=== PATIENT | female | born 1965 | race Caucasian/White ===

== ENCOUNTER 2017-05-24 08:54 | Emergency (ER) | payer OTHER ==
[~2017-05-24] VITALS: Ht 165.1 cm; Wt 90.7 kg
[~2017-05-24 08:54] MED LIST: AMLODIPINE BESYL5 M1 PO; ASPIR LOW81 MG PO; CLINDAMYCIN HC300 MG PO; COLACE100 MG PO; LAC PO; LEVAQUIN500 MG PO; NORCO1 TA2 PO; ZOC20 PO
[2017-05-24 09:00] VITALS: BP 117/76; Ht 165.1 cm; Wt 90.7 kg
== END 2017-05-24 10:06 | disposition home or self-care (01) ==
LOC: ED 08:54
DX: M25.531 Pain in right wrist (principal); I10 Essential (primary) hypertension; E03.9 Hypothyroidism, unspecified; Z98.51 Tubal ligation status
CPT/HCPCS: A4570

== ENCOUNTER 2017-06-11 02:10 | Emergency (ER) | payer OTHER ==
[~2017-06-11] VITALS: Ht 160 cm; Wt 85.7 kg
[2017-06-11 02:16] VITALS: Ht 160 cm; Wt 85.7 kg
[2017-06-11 04:59] VITALS: BP 133/72
== END 2017-06-11 04:59 | disposition home or self-care (01) ==
LOC: ED 02:10
DX: M13.832 Other specified arthritis, left wrist (principal); I10 Essential (primary) hypertension; E03.9 Hypothyroidism, unspecified
CPT/HCPCS: J1885

== ENCOUNTER 2017-06-13 05:14 | Emergency (ER) | payer OTHER ==
[~2017-06-13] VITALS: Ht 165.1 cm; Wt 86.2 kg
[2017-06-13 05:22] VITALS: Ht 165.1 cm; Wt 86.2 kg
[2017-06-13 06:53] VITALS: BP 120/67
== END 2017-06-13 06:53 | disposition home or self-care (01) ==
LOC: ED 05:14
DX: L03.114 Cellulitis of left upper limb (principal); I10 Essential (primary) hypertension; E03.9 Hypothyroidism, unspecified; Z98.51 Tubal ligation status
CPT/HCPCS: J0690; Q0092

== ENCOUNTER 2017-07-12 19:23 | Emergency (ER) | payer OTHER | END 2017-07-12 20:19 | disposition left against medical advice (07) | LOC: ED 19:23 | DX: Z53.21 Procedure and treatment not carried out due to patient leaving prior to being seen by health care provider (principal) ==

== ENCOUNTER 2018-01-03 21:45 | Emergency (ER) | payer OTHER ==
[~2018-01-03] VITALS: Ht 165.1 cm; Wt 84.5 kg
[2018-01-03 21:52] VITALS: Ht 165.1 cm; Wt 84.5 kg
[2018-01-04 00:12] VITALS: BP 122/78
== END 2018-01-04 00:12 | disposition home or self-care (01) ==
LOC: ED 21:45
DX: M25.532 Pain in left wrist (principal); M79.642 Pain in left hand; I10 Essential (primary) hypertension; E03.9 Hypothyroidism, unspecified; Z98.51 Tubal ligation status
CPT/HCPCS: J2270; J7512; Q0162

== ENCOUNTER 2018-08-01 14:54 | Emergency (ER) | payer OTHER ==
[~2018-08-01] VITALS: Ht 162.6 cm; Wt 87.1 kg
[2018-08-01 14:56] VITALS: BP 159/99; Ht 162.6 cm; Wt 87.1 kg
== END 2018-08-01 17:14 | disposition left against medical advice (07) ==
LOC: ED 14:54
DX: Z53.21 Procedure and treatment not carried out due to patient leaving prior to being seen by health care provider (principal)

== ENCOUNTER 2018-08-02 06:36 | Emergency (ER) | payer OTHER ==
[~2018-08-02] VITALS: Ht 165.1 cm; Wt 87.5 kg
[2018-08-02 06:47] VITALS: BP 132/81; Ht 165.1 cm; Wt 87.5 kg
== END 2018-08-02 07:48 | disposition left against medical advice (07) ==
LOC: ED 06:36
DX: Z53.21 Procedure and treatment not carried out due to patient leaving prior to being seen by health care provider (principal)

== ENCOUNTER 2018-09-26 22:24 | Emergency (ER) | payer OTHER ==
[~2018-09-26] VITALS: Ht 165.1 cm; Wt 88.1 kg
[2018-09-26 22:52] VITALS: Ht 165.1 cm; Wt 88.1 kg
[2018-09-27 01:35] VITALS: BP 108/66
== END 2018-09-27 01:35 | disposition home or self-care (01) ==
LOC: ED 22:24
DX: L03.115 Cellulitis of right lower limb (principal); I10 Essential (primary) hypertension; E03.9 Hypothyroidism, unspecified; Z98.890 Other specified postprocedural states; Z98.51 Tubal ligation status
CPT/HCPCS: J2543

== ENCOUNTER 2018-10-05 | Inpatient (IN) | payer OTHER ==
[~2018-10-05] VITALS: Ht 162.6 cm; Wt 89.4 kg
[2018-10-05 00:15] VITALS: Ht 162.6 cm; Wt 89.4 kg
--- NOTE | 2018-10-05 01:26 | NUR ---
PT TO ED FOR EVAL OF L ANKLE CELLULITIS. PT WAS SEEN LAST WEEK AND DIAGNOSED WITH CELLULITIS. PT GIVEN RX FOR ANTIBIOTICS. PT HAD BEEN TAKING ANTIBIOTIC BUT HAS NOT SEEN IMPROVEMENT IN THE INFECTIONS. PT AWAKE AND ALERT. BREATHING EVEN UNALBORED. NO DISTRESS. MSE COMPLETED.
--- NOTE | 2018-10-05 01:50 | NUR ---
LAB AT BEDSIDE.
[2018-10-05 02:25] LABS: CALCIUM 8.6 mg/dL (8.5-10.1); CARBON DIOXIDE 23.8 mmol/L (21-32); CHLORIDE SERUM 107 mmol/L (98-107); CREATININE SERUM 0.9 mg/dL (0.6-1.0); GFR1 > 60 mL/min; GLUCOSE SERUM 84 mg/dL (74-106); POTASSIUM SERUM 3.5 mmol/L (3.5-5.1); SODIUM SERUM 143 mmol/L (136-145)
[2018-10-05 02:26] LABS: BASOPHIL % 0.4 % (0-2); RED CELL DISTRIBUTION WIDTH 13.4 % (11.5-14.5)
[2018-10-05 02:28] LABS: PLATELET COUNT 421 x10^3mcL (130-400)
--- NOTE | 2018-10-05 02:30 | NUR ---
PT RESTING ON GURNEY IN NAD, BREATHING EVEN AND UNLABORED. PT A&0X4, SPEAKING FULL CLEAR SENTENCES. WILL CONTINUE TO MONITOR.
[2018-10-05 02:43] LABS: ALBUMIN 3.3 g/dL (3.4-5.0); ALKALINE PHOSPHATASE 120 U/L (46-116); ALT/SGPT 48 U/L (14-59); AST/SGOT 21 U/L (15-37); BILIRUBIN TOTAL 0.28 mg/dL (0.20-1.00); TOTAL PROTEIN, SERUM 7.4 g/dL (6.4-8.2)
[2018-10-05 02:58] LABS: CHOLESTEROL/HDL RATIO 3.3; PHOSPHOROUS 3.7 mg/dL (2.5-4.9)
--- NOTE | 2018-10-05 03:20 | NUR ---
PT MEDICATED PER MD ORDERS. IV FLUIDS RUNNING AT ORDERED RATE. PT A&0X4, SPEAKING FULL CLEAR SENTENCES. BREATHING EVEN AND UNLABORED. WILL CONTINUE TO MONITOR.
--- NOTE | 2018-10-05 03:35 | NUR ---
REPORT CALLED TO SKYLER AGUILAR
--- NOTE | 2018-10-05 03:55 | NUR ---
PT TRANSFERED TO [facility] AT THIS TIME VIA WHEELCHAIR. PT A&0X4, SPEAKING FULL CLEAR SENTENCES. PT BREATHING EVEN AND UNLABORED. IV FLUIDS ENDORSED TO SKYLER AGUILAR. PT VERBALIZED UNDERSTANDING OF PLAN OF CARE. PT ACCOMPANIED BY THOMAS GROVER.
--- NOTE | 2018-10-05 03:59 | NUR ---
PATIENT ARRIVED ONTO THE UNIT VIA WHEELCHAIR ACCOMPANIED BY ED STAFF. ASSISTED PATIENT TO THE BATHROOM. PATIENT AMBULATED INDEPENDENTLY WITH A LIMP D/T LLE PAIN. ASSISTED BACK TO BED AND MADE COMFORTABLE. BREATHING EVEN AND UNLABORED ON ROOM AIR. NO SOB OR RESP DISTRESS NOTED. MED SURG PATIENT. DENIES CHEST PAIN/PRESSURE. C/O 8/10 THROBBING AND BURNING PAIN TO LLE. LLE WITH SWELLING AND ERYTHEMA. SITE MARKED WITH PEN. ALSO C/O MILD NAUSEA, BUT STATES IT'S TOLERABLE AT THIS TIME. IV TO THE RAC, 20G. PATENT AND INTACT. CURRENTLY INFUSING VANCO. COMFORT AND SAFETY MEASURES IN PLACE. CALL LIGHT IS WITHIN REACH. BED IS LOCKED AND IN THE LOWEST POSITION. SIDE RAILS UP X2. ORIENTED PATIENT TO ROOM AND CALL LIGHT SYSTEM AND BED CONTROLS. COLLECTED URINE. PATIENT ASKING FOR WATER AND CRACKERS. NO DIET ORDER AT THIS TIME. WILL PAGE DR MCQUEEN. CALL LIGHT IS WITHIN REACH. WILL CONTINUE TO MONITOR.
--- NOTE | 2018-10-05 04:37 | NUR ---
A/O 8/10 THROBBING AND BURNING PAIN TO LLE. PRN NORCO WAS ADMINISTERED PRESCRIBED. EDUCATED PATIENT ON MEDICATION. VERBALIZED UNDERSTANDING. ALSO GAVE ICE WATER AND CRAKERS. NO DISTRESS NOTED. BREATHING EVEN. CALL LIGHT IS WITHIN REACH. PATIENT IS WATCHING TV. WILL CONTINUE TO MONITOR.
[2018-10-05 04:40] LABS: BASOPHIL % 0.2 % (0-2); RED CELL DISTRIBUTION WIDTH 13.4 % (11.5-14.5)
[2018-10-05 04:42] LABS: PLATELET COUNT 406 x10^3mcL (130-400)
[2018-10-05 04:54] LABS: CALCIUM 8.4 mg/dL (8.5-10.1); CARBON DIOXIDE 23.5 mmol/L (21-32); CHLORIDE SERUM 104 mmol/L (98-107); CREATININE SERUM 0.7 mg/dL (0.6-1.0); GFR1 > 60 mL/min; GLUCOSE SERUM 101 mg/dL (74-106); PHOSPHOROUS 3.1 mg/dL (2.5-4.9); POTASSIUM SERUM 3.9 mmol/L (3.5-5.1); SODIUM SERUM 139 mmol/L (136-145)
[2018-10-05 04:56] VITALS: BP 130/69
--- NOTE | 2018-10-05 05:57 | NUR ---
PATIENT IS A HEAVY SMOKER AND REQUESTING NICOTINE PATCH. DR MCQUEEN IS AWARE.
[2018-10-05 06:43] LABS: microscopic required? NO
--- NOTE | 2018-10-05 06:54 | NUR ---
NO ACUTE CHANGES NOTED. PAIN TOLERABLE AT THIS TIME. 05/07. IVF INFUSING WELL. BREATHING EVEN AND UNLABORED ON ROOM AIR. NO DISTRESS NOTED. SAFETY MEASURES IN PLACE. CALL LIGHT IS WITHIN REAWCH. WILL ENDORSE CARE TO DAY SHIFT RN
[2018-10-05 07:03] LABS: UA SPECIFIC GRAVITY >=1.030 (1.005-1.035); urine erythrocyte NEGATIVE (NEGATIVE)
[2018-10-05 07:18] LABS: AMPHETAMINE QUAL UR POSITIVE (See below)
--- NOTE | 2018-10-05 08:00 | NUR ---
RECEIVED PATIENT ALERT AND ORIENTED TIMES FOUR. JENNIFER NEVAREZS DAUGHTER AT BEDSIDE AND INDICATED SHE IS HER SPOKEPERSON AND INFORMATION WAS OK TO GIVE TO HER. SHE HAS NOTED CELLULITIS TO THE LEFT LOWER EXTREMITY AND HAS BEEN WITH REDNESS AND SWELLING TO THE SITE AND HAS BEEN MARKED INDICATED. PATIENT HAS CLEAR BREATH SOUND SAND THE CHEST XRAY NEGATIVE AND NOTED SHE IS AN EVERYDAY SMOKER. PATIENT HAD ORDDERED A NICODINE PATCH. SHE HAS BEEN ON VANCOMYCIN AND TO RECEIVE UNASYN BUT PER PHARMACY A CHANGE IS INDICATED. PHARMACY IS ATTEMPTING TO GET A HOLD OF RESIDENT FOR ORDER CHANGE. VITAL ARE AT 98.9, 68, 130/69, 18, 98% ON ROOM AIR. PATIENT TOLERATED OOB AND HAS BEEN LIMPING DUE TO THE SWELLING BUT NORMALLY CAN AMBULATE WITHOUT ANY ASSISTANCE. PATIENT AHD NO FRACTURE PER XRAY TO THE ANKLE OR THE TIBIA. SHE HAS SOME MILD SPURRING SOFT TISSUE SWELLING NOTED. THE NOTED LABS ARE THE WBC AT 17.6 AND LACTIC AT 2.1, THE BUN AT 19.0 AND PLT COUNT 406. APPARENTLY HAD GONE TO THE ER AND RECEIVED ANTIBIOTIC PRESCRIPTION BUT THE MEDICAITON WAS INEFFECTIVE AND SHE RETURNED FOR TREATMENT. PATIENT HAS A HISTORY OF HTN, HYPOTHYROID AND TUBAL LIGATION. SHE HAS BLOOD CULTURES DRAWN AND PENDING AT THIS TIME. TO BE SEEN BY PODIATRY ORDERED. NO ACUTE PAIN OR DISCOMFORT NOTED AT THIS TIME. RECIEVED MEDARDO AT 437 THIS AM.
[2018-10-05 09:31] VITALS: BP 104/65
[2018-10-05 18:21] VITALS: BP 98/48
--- NOTE | 2018-10-05 19:30 | NUR ---
RECEIVED REPORT FROM DAY SHIFT RN. PT RESTING IN BED. AA&O X4. NO SOB ON ROOM AIR. NO C/O PAIN AT THIS TIME. ERYTHEMA/EDEMA TO LLE NOTED. IV TO RAC, NS INFUSING. SAFETY MEASURES IN PLACE. BED IN LOWEST POSITION. SIDE RAILS UP X2. INSTRUCTED PT TO USE THE CALL LIGHT FOR ASSISTANCE. CALL LIGHT WITHIN REACH.
--- NOTE | 2018-10-05 19:48 | NUR ---
PATIENT OOB AND TOLERATED WELL. NO COMPLAINTS OF PAIN NOTED. THE REDNESS IS DARKER AND SWELLING HAS REDUCED SOME. NO ADVERSE REACTION TO THE ANTIBIOTICS NOTED.
[2018-10-05 21:50] VITALS: BP 100/52
--- NOTE | 2018-10-06 02:25 | NUR ---
PT RESTING WITH EYES CLOSED. BREATHING EVEN AND UNLABORED. NO DISTRESS NOTED. CALL LIGHT WITHIN REACH. WILL CONITUE TO MONITOR.
[2018-10-06 05:40] VITALS: BP 93/53
[2018-10-06 06:42] LABS: BASOPHIL % 0.4 % (0-2); PLATELET COUNT 396 x10^3mcL (130-400); RED CELL DISTRIBUTION WIDTH 13.6 % (11.5-14.5)
--- NOTE | 2018-10-06 06:57 | NUR ---
PT RESTED AT LONG INTERVALS. NO SOB ON ROOM AIR. NO C/O PAIN. NO ACUTE DISTRESS NOTED. AMBULATES TO THE BATHROOM. SAFETY MEASURES MAINTAINED. ALL NEEDS ATTENDED TO. WILL ENDORSE CONTINUITY OF CARE TO ONCOMING RN.
[2018-10-06 07:01] LABS: CALCIUM 8.8 mg/dL (8.5-10.1); CARBON DIOXIDE 25.8 mmol/L (21-32); CHLORIDE SERUM 109 mmol/L (98-107); CREATININE SERUM 0.6 mg/dL (0.6-1.0); GFR1 > 60 mL/min; GLUCOSE SERUM 98 mg/dL (74-106); PHOSPHOROUS 3.3 mg/dL (2.5-4.9); POTASSIUM SERUM 4.4 mmol/L (3.5-5.1); SODIUM SERUM 143 mmol/L (136-145)
--- NOTE | 2018-10-06 08:00 | NUR ---
ALERT AND ORIENTED. SITTING UP FOR BREAKFAST. BREATHING FREELY ON RA. DENIES ANY PAIN. LEFT LOWER LEG CELLULITIS NO OPEN AREAS OR WEEPING. REDNESS RECEEDING AT SOME OF TRACING ON LEG. NS INFUSING 100 CC HOUR TO RT AC. INDEPENDENT W ADL'S. DENIES ANY PHYSICAL LIMITATIONS OR LIMPING R/T CELULITIS. BRP. CALL LIGHT WITHIN REACH.
[2018-10-06 08:37] VITALS: BP 120/79
[2018-10-06 13:38] VITALS: BP 120/79
--- NOTE | 2018-10-06 14:59 | NUR ---
Initial Nutrition Assessment: ([id number]) SHRADDHA DENSON 52F Dx: Cellulitis PMHx: HTN, Hypothyroidism, Generalised Anxiety PSHx: Tubal ligation Labs: Alb 3.3 L, Alk Ph 120 H, Meds: Colace, Lipitor, Prilosec, Vancomycin, Zofran Diet: Cardiac PO intake since admission: 92% Ht: 64in Wt: 197# BMI: 33.8 Bed scale: 203.6# IBW: 120# %IBW: 164% UBW: 190# Age: 52 Food Allergies: NKFA Skin: Redness LLE r/t cellulitis Lavelle: 19 Edema: 1+ LLE, trace RLE GI: Pt has no nausea at this time Last BM: 10/04 RD Note (10/06): Consult received for mild malnutrition. Pt discussed in bed huddles, planned 1-2 day D/C in place. Per recent MD progress note, pt's urine positive for amphetamine and cannabis, blood culture negative. Visited pt bedside, states appetite and PO are good, states swelling in legs have gone down. All questions and concerns addressed and answered at this time. Problem with N/V/D/C: No Problems with: Chewing: No Swallowing: No Current appetite: good Recent wt change: No %wt change: No Vitamin/Supplement use:No Special diet at home: Regular Physical activity: N/A Nutrition education given (specify specific nutrition education and handout given): None given at this time. Food-drug interactions? Education given? None given at this time. Estimated Nutritional Needs Based on current body weight (89 kg) Energy: 5017-6998 kcal/day (25-30 kcal/kg for maintenance) Protein: 89-107 g/day (1.0-1.2 g/kg for maintenance) Fluid: 4561-9534 mL/day (1 mL/kcal) or per MD Nutrition Diagnosis: Altered nutrition-related lab values r/t cellulitis, anxiety AEB Alb 3.3, Alk Ph 120 Intervention 1. Continue Cardiac diet order Monitor/Evaluate Goal: PO intake at least 75% of estimated needs Monitor: PO intake, Labs, GI function F/U in 7 days as low risk 10/13
--- NOTE | 2018-10-06 14:59 | NUR ---
Recommendations: 1. Continue Cardiac diet order.
[2018-10-06 16:36] VITALS: BP 103/53
--- NOTE | 2018-10-06 19:35 | NUR ---
RESTING QUIETLY. IV HL'D. DENIES ANY PAIN LEFT LOWER LEG ELEVATED ON PILLOW. CONTINUES ON VANCO AND CLEOCIN. RESIDENT AWARE OF BLOOD CX GRAM (+) COCCI IN CLUSTERS. INDEPENDENT W ADLS'. VSS. CALL LIGHT WITHIN REACH.
--- NOTE | 2018-10-06 19:40 | NUR ---
PT IS A/O X4. PT FOLLOWS TO VERBAL COMMANDS. PT DENIES ANY CHEST PAIN OR SOB, MED SURG. PALPABLE PULSES, EDEMA TO THE LLE. PT HAS CLEAR LUNG SOUNDS BILATERALLY. BREATHING EVEN AND UNLABORED. PT VOIDS. LAST BM 10/05, ABD SOFT AND DISTENDED. PT HAS WEAKNESS TO THE LLE. PT IS AMBULATORY. PT HAS REDNESS TO THE LLE . NO DRAINAGE NOTED. PT HAS IV TO RAC CDI. PT DENIES ANY PAIN AT THIS TIME. PT CALL LIGHT WITHIN REACH. WILL CONT TO MONITOR.
[2018-10-06 21:21] VITALS: BP 112/63
--- NOTE | 2018-10-07 00:07 | NUR ---
PT ASLEEP. EASILY AROUSABLE TO VERBAL STIMULI. NO RESP DISTRESS NOTED. BREATHING EVEN AND UNLABORED. PT DENIES ANY PAIN AT THIS POINT. WILL CONT TO MONITOR. CALL LIGHT WITHIN REACH.
--- NOTE | 2018-10-07 04:47 | NUR ---
PT SLEPT ON AND OFF THROUGH OUT THE NIGHT. PT DENIES ANY CHEST PAIN OR SOB. PT DENIES ANY PAIN AT THIS TIME. PT LLE ELEVATED ON PILLOW, REDNESS IS STILL PRESENT, NO OPEN WOUND. PT WAS COOPERATIVE WITH NURSING CARE. IV TO RAC INFUSIGN WELL, CDI. NO ACUTE CHANGES THROUGH OUT THE NIGHT. WILL ENDORSE CARE TO DAY SHIFT NURSE.
[2018-10-07 06:01] VITALS: BP 110/81
--- NOTE | 2018-10-07 08:00 | NUR ---
ALERT AND ORIENTED. WANTING TO GO HOME. SL TO RT AC LEAKING. HL'D. IF PT GOES HOME TODAY SHE WILL NOT NEED ANOTHER IV. INDEPENDENT W ADL'S. BRP. DENIES ANY PAIN. BREATHING FREELY ON RA. REDNESS AND TRACE EDEMA CONTINUE TO RECEED FROM TRACINGS AROUND CELLULITS AREA. CALL LIGHT WITHIN REACH.
[2018-10-07 08:32] VITALS: BP 124/70
[2018-10-07] MEDS ORDERED: CLINDAMYCIN HC300 MG PO (09:27)
[2018-10-07 10:11] VITALS: BP 124/70
--- NOTE | 2018-10-07 10:39 | NUR ---
DC'D TO HOME. IV DC'D NO TELE. PRESCRIPTIONS GIVEN FOR CLINDAMYCIN P O, PT TO CALL PCP TUESDAY FOR F/U PEGGY. ALL DC INSTRUCTIONS REVIEWED WITH AND SIGNED BY PT.
== END 2018-10-07 10:40 | disposition home or self-care (01) | DRG 383 ==
LOC: ED → MU 02:04
PROVIDERS: Emergency Medicine; ADMIT Internal Medicine
DX: L03.116 Cellulitis of left lower limb (principal); I95.9 Hypotension, unspecified; E11.65 Type 2 diabetes mellitus with hyperglycemia; E44.1 Mild protein-calorie malnutrition; E03.9 Hypothyroidism, unspecified; I10 Essential (primary) hypertension; F12.10 Cannabis abuse, uncomplicated; E66.9 Obesity, unspecified; F17.210 Nicotine dependence, cigarettes, uncomplicated; Z68.32 Body mass index [BMI] 32.0-32.9, adult; Z98.51 Tubal ligation status; F41.1 Generalized anxiety disorder; Z79.82 Long term (current) use of aspirin; Z83.3 Family history of diabetes mellitus; Z82.49 Family history of ischemic heart disease and other diseases of the circulatory system; F15.10 Other stimulant abuse, uncomplicated
CPT/HCPCS: G0378; J3370; J3490; J7030; Q0092

== ENCOUNTER 2018-10-10 20:44 | Emergency (ER) | payer OTHER ==
[~2018-10-10] VITALS: Ht 165.1 cm; Wt 88.0 kg
[2018-10-10 21:06] VITALS: Ht 165.1 cm; Wt 88.0 kg
[2018-10-10 22:51] VITALS: BP 132/80
== END 2018-10-10 22:51 | disposition home or self-care (01) ==
LOC: ED 20:44
DX: M25.571 Pain in right ankle and joints of right foot (principal); R22.41 Localized swelling, mass and lump, right lower limb; I10 Essential (primary) hypertension; E03.9 Hypothyroidism, unspecified; F41.9 Anxiety disorder, unspecified; Z98.51 Tubal ligation status
CPT/HCPCS: J1885

== ENCOUNTER 2018-11-30 21:11 | Emergency (ER) | payer OTHER ==
[~2018-11-30] VITALS: Ht 165.1 cm; Wt 72.1 kg
[2018-11-30 21:14] VITALS: Ht 165.1 cm; Wt 72.1 kg
[2018-11-30 23:27] VITALS: BP 110/99
== END 2018-11-30 23:27 | disposition home or self-care (01) ==
LOC: ED 21:11
DX: L03.116 Cellulitis of left lower limb (principal); T24.211A Burn of second degree of right thigh, initial encounter; X08.8XXA Exposure to other specified smoke, fire and flames, initial encounter; Y93.89 Activity, other specified; Y92.89 Other specified places as the place of occurrence of the external cause; Y99.8 Other external cause status
CPT/HCPCS: J0696; J1885

== ENCOUNTER 2019-04-04 03:24 | Emergency (ER) | payer OTHER ==
[~2019-04-04] VITALS: Ht 165.1 cm; Wt 86.7 kg
[2019-04-04 03:29] VITALS: Ht 165.1 cm; Wt 86.7 kg
[2019-04-04 04:37] VITALS: BP 147/81
== END 2019-04-04 04:37 | disposition home or self-care (01) ==
LOC: ED 03:24
DX: L03.116 Cellulitis of left lower limb (principal); I10 Essential (primary) hypertension; E03.9 Hypothyroidism, unspecified; F41.9 Anxiety disorder, unspecified; Z98.51 Tubal ligation status

== ENCOUNTER 2019-04-04 16:26 | Emergency (ER) | payer OTHER ==
[~2019-04-04] VITALS: Ht 165.1 cm; Wt 86.6 kg
[2019-04-04 16:46] VITALS: BP 143/80; Ht 165.1 cm; Wt 86.6 kg
== END 2019-04-04 17:55 | disposition home or self-care (01) ==
LOC: ED 16:26
DX: L03.116 Cellulitis of left lower limb (principal); F17.210 Nicotine dependence, cigarettes, uncomplicated; I10 Essential (primary) hypertension; F15.10 Other stimulant abuse, uncomplicated; E11.9 Type 2 diabetes mellitus without complications; Z98.890 Other specified postprocedural states
CPT/HCPCS: 82962; 99406

== ENCOUNTER 2019-10-07 02:54 | Emergency (ER) | payer OTHER ==
[~2019-10-07] VITALS: Ht 165.1 cm; Wt 85.5 kg
[2019-10-07 03:38] VITALS: BP 119/85
== END 2019-10-07 03:38 | disposition home or self-care (01) ==
LOC: ED 02:54
DX: S70.361A Insect bite (nonvenomous), right thigh, initial encounter (principal); I10 Essential (primary) hypertension; E11.9 Type 2 diabetes mellitus without complications; E03.9 Hypothyroidism, unspecified; Z98.51 Tubal ligation status; W57.XXXA Bitten or stung by nonvenomous insect and other nonvenomous arthropods, initial encounter; Y93.89 Activity, other specified; Y92.89 Other specified places as the place of occurrence of the external cause; Y99.8 Other external cause status
CPT/HCPCS: J7512

== ENCOUNTER 2019-10-23 01:29 | Emergency (ER) | payer OTHER ==
[~2019-10-23] VITALS: Ht 165.9 cm; Wt 86.2 kg
[2019-10-23 01:36] VITALS: Ht 165.9 cm; Wt 86.2 kg
[2019-10-23 03:22] VITALS: BP 112/69
== END 2019-10-23 03:22 | disposition home or self-care (01) ==
LOC: ED 01:29
DX: S81.851A Open bite, right lower leg, initial encounter (principal); I10 Essential (primary) hypertension; E11.9 Type 2 diabetes mellitus without complications; E03.9 Hypothyroidism, unspecified; Z98.51 Tubal ligation status; W57.XXXA Bitten or stung by nonvenomous insect and other nonvenomous arthropods, initial encounter; Y93.89 Activity, other specified; Y92.89 Other specified places as the place of occurrence of the external cause; Y99.8 Other external cause status